=== PATIENT | female | born 1990 | race Caucasian/White ===

== ENCOUNTER → 2016-09-22 | Outpatient (CLI) | payer BC ==
[2016-09-25 08:07] LABS: Mis test requested (Blood) Heat Shock Protein
[2016-09-30 08:10] LABS: Mis test requested (Blood) HLA B-27
== END | disposition home or self-care (01) ==
LOC: LABWHC1 13:33
PROVIDERS: ATTEND Nurse Practitioner Family
DX: R51 Headache (principal); M54.2 Cervicalgia; H92.01 Otalgia, right ear; H90.5 Unspecified sensorineural hearing loss; H93.13 Tinnitus, bilateral
CPT/HCPCS: 36415; 81400; 83516; 85652; 86038; 86431; 86618

== ENCOUNTER → 2022-10-01 | Outpatient (CLI) | payer MEDICAID ==
--- NOTE | 2022-10-02 09:17 | MR ---
EXAMINATION TYPE: MR thoracic spine wo con DATE OF EXAM: 10/01/2022 4:56 PM COMPARISON: No priors. 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 Lower back pain with left leg p ain TECHNIQUE: Multi planar, multi sequence imaging was performed utilizing: T1-weighted, short-tau inver martha recovery and T2-weighted of the thoracic spine. The patient was not given Gadolinium. IV Contrast: None FINDINGS: There is moderate curvature with the spinal cord position anteriorly along the posterior aspect of th e vertebral bodies. There is a syrinx this essentially extends throughout the entire visualized spina l cord centrally measuring up to 2 mm at the level of T6. Scattered disc desiccation throughout the vertebral bodies. Scattered disc bulging is present. Scatte red degeneration changes throughout the spine. There is high-grade T1/high T2 signal T12 vertebral moses dy probable hemangioma. No evidence for significant spinal cord or neural foraminal stenosis. Posterior osteophyte at the level of the disc which closely approximates/minimally impresses on the s klesea cord anteriorly at T4-T5, T5-T6, T8-T9 and T9-T10. Cord signal is maintained. IMPRESSION: 1. No evidence of significant spinal canal or neural foraminal stenosis. 2. 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 3. Posterior osteophyte at the level of the disc which closely approximates/minimally impresses on t he spinal cord anteriorly at T4-T5, T5-T6, T8-T9 and T9-T10. No abnormal cord signal.
== END | disposition home or self-care (01) ==
LOC: RADMRIMAIN 16:08
PROVIDERS: ATTEND Nurse Practitioner Family
DX: M47.26 Other spondylosis with radiculopathy, lumbar region (principal); G95.0 Syringomyelia and syringobulbia; M79.605 Pain in left leg
CPT/HCPCS: 72146

== ENCOUNTER 2023-04-23 12:02 | Day surgery (SDC) | payer MEDICAID ==
--- NOTE | 2023-04-23 07:35 | P.HPOR ---
History of Present Illness H&P Date: 04/23/23 .T:Title: [facility] Date of :[birth year] R14 Allergies: Age: 33 year Height: 5'7" Weight: 155 lbs BP:109/69 BMI: 24.28 kg/m2 Occupation: Receiving Lead VAS: 5 CHIEF COMPLAINT: lumbar pain DOI: Chronic DOS: n/a Duration of current treatment regiment:5 months HISTORY : Xrays No new xrays taken in office Trauma or injury Yes, fall from steps on ice Work-Related No Pain description Aching & sharp. Location Posterior Patient notes that their pain radiates to left lower extremity Activity Modification No Hand Dominance Right TREATMENTS COMPLETED: 6 weeks of PT completed? Month and Year of last PT date? No, Patient has completed 2 sessions and is currently attending Physician directed home exercise completed? Yes, in the past 3 months patient has trialed the physician directed home exercise program for Lumbar spine 2x/wk for 20min without relief of their symptoms. Medications Yes List: Ibuprofen Alternative interventions Chiropractic:Yes, with some relief Massage therapy:No R.I.C.E:Yes Brace: No Injections No RFA: No SUBJECTIVE: Ms. Bahena returns today for a re-check and treatment of her low back pain. Since last visit patient states she never got the previously ordered injections. Patient reports lumbar pain that radiates down the left leg only. She state her leg and back ache all the time. She notes difficulty bending over. The patient states that her left lower extremity pain is associated with numbness and tingling. The patient notes intermittent sharp, shooting pains throughout the low back as well, though the ache-like pain occurs on a more constant basis. The patient states that her current symptoms are exacerbated by prolonged sitting or standing, when getting up from a chair, or when walking up the stairs. The patient is having severe sleep disturbances at this time due to her ongoing pain and associated symptoms. The patient notes continued urinary urgency. She has trialed conservative treatment measures in the form of physical therapy, at home stretches/exercises, at home heat/ice therapies, activity modification, and medication management, all with very mild relief of her symptoms. The patient is currently taking Ibuprofen for pain relief. Otherwise the patient denies any f/c/sob/cp, no bowel retention/incontinence, no perineal numbness/tingling, and ambulates independently today. HPI: Ms. Bahena returns to the office on 11/13/22 for a re-check of her low back pain and to review recent EMG and MRI results. The patient reports experiencing a continued ache-like pain throughout the low back that radiates down into the left lower extremity. The patient states that her left lower extremity pain is associated with numbness and tingling. The patient notes intermittent sharp, shooting pains throughout the low back as well, though the ache-like pain occurs on a more constant basis. The patient notes that her symptoms have remained relatively stable since she was last evaluated in office on 09/23/2022. The patient states that her current symptoms are exacerbated by prolonged sitting or standing, when getting up from a chair, or when walking up the stairs. The patient is having moderate to severe sleep disturbances at this time due to her ongoing pain and associated symptoms. The patient notes continued urinary urgency. She has trialed conservative treatment measures in the form of physical therapy, at home stretches/exercises, at home heat/ice therapies, activity modification, and medication management, all with very mild relief of her symptoms. The patient's EMG of the bilateral lower extremities and MRI of the thoracic spine were both reviewed with the patient in detail today. The patient is currently taking Ibuprofen for pain relief. Otherwise the patient denies any f/c/sob/cp, no bowel retention/incontinence, no perineal numbness/tingling, and ambulates independently today. Ms. Bahena returns to the office on 09/23/2022 for recheck on her low back pain and MRI results. Patient continues to report an aching, stabbing, shooting lumbar pain that radiates into the left lower extremity, associated with numbness and tingling. Since last office visit patient has attempted to perform physical therapy, unable to do so due to exacerbation of symptoms. Patient also continues to report urgency to urinate and has had incontinence at times. MRI results have been reviewed and discussed. For her symptoms, patient continues to take gabapentin and Motrin. Otherwise the patient denies any f/c/sob/cp, no bowel retention/incontinence, no perineal numbness/tingling, and ambulates independently. Ms. Bahena was last seen on 09/07/2022 regarding an evaluation of their low back pain. Patient reports flare ups of an aching, stabbing, and shooting lumbar pain ongoing for approx 8 years and is continuing to progress with no known injury or trauma to indicate an exact onset of their symptoms. In addition to their lumbar pain, they do report that it radiates into the left lower extremity, associated with numbness and tingling. Overall the patient has seen a progressive increase in symptoms since their onset. She reports the urgency to urinate and has had incontinence at times. Patient also reports during these flare up she has edema to the left lower extremity to the point that she is unable to wear her shoe. Ms. Bahena symptoms are exacerbated with any increased activity, due to this they notes that it is increasingly difficult for Ms. Bahena to complete many of their daily tasks. Patient is having moderate sleep disturbances as well due to their ongoing pain and associated symptoms. Regarding treatments, the patient has previously trialed the above listed modalities. Patient denies trialing any other modalities at this time. For their symptoms, the patient has been taking Motrin. Otherwise the patient denies any f/c/sob/cp, no bowel retention/incontinence, no perineal numbness/tingling, and ambulates independently. The patients' past social, medical, family, surgical history, as well as review of systems, have been reviewed. Please refer to the Neurosurgery History and Physical form that has been scanned in to our electronic medical record system. 14 points review of systems completed and as stated in HPI, all other systems reviewed are negative. Social History: Reviewed, see appropriate section of the chart for details. P3 Family History: Reviewed, see appropriate section of the chart for details. P2 Past Medical History: Reviewed, see appropriate section of the chart for details. [id number] Medications: Rx: IBUPROFEN 200mg ORAL Tablet, Ref: 0 Rx: gabapentin 300 mg capsule Ref: 0 PHYSICAL EXAMINATION: General:Awake, alert, appropriate for age, in no acute distress. HEENT:No unusual neck masses around region of lateral neck triangle, thyroid, supraclavicular groove Heart:Regular rate and rhythm, normal S1, S2 and no murmur/gallop. Lungs:Clear to auscultation bilaterally with no use of accessory muscles. Extremities:Skin warm and dry without acute lesions, coloration, temperature, skin intact, no tenderness or erythema Integument: Hairy patches:ABSENT Dorsal skin dimples:ABSENT Cafe au lait spots:ABSENT Surgical incisions:n/a Palpation: Please see Pain drawing on Intake sheet for further detail. Midline spinal tenderness:No E6 Cervical Tenderness: No E6 Paralumbar tenderness:No E6 Parathoracic tenderness:No E6 Buttocks tenderness:Left Sacroiliac Tenderness:Yes Laterality: Left POSTURAL and MUSCULO-SKELETAL EVALUATION: Coronal Balance: NEUTRAL Recumbent testing: Patient isable to lay flat on back Sagittal Balance: NEUTRAL Shoulder Profile: LEVEL Pelvic Girdle: LEVEL Neck ROM: UNRESTRICTED Lumbar ROM: RESTRICTED Shoulder ROM: Symmetrical Hip ROM: Symmetrical Knee ROM: Symmetrical Hands: Normal appearance, Symmetrical Feet: Normal appearance, Symmetrical VASCULAR STATUS : LEFTRIGHT Wrist Pulses INTACT INTACT Pedal Pulses (Dors. pedis & post.tibialis) INTACT INTACT Color NORMAL NORMAL Edema Absent Absent NEUROLOGIC EXAMINATION: Mental Status:Awake and alert, fully oriented, with normal attention, concentration and memory, and fluent, appropriate speech. Cranial Nerves: I: Olfactory not tested. II: Visual acuity normal, no visual field deficit noted with confrontation. III,IV: Normal pupillary reflexes & intact extraocular movements without nystagmus. V,: Intact symmetrical facial sensation. VII: Intact symmetrical facial motor movement VIII: Hearing intact. IX,X: Intact gag, swallow, & normal voice. XI: Sternocleidomastoid, trapezius function intact. XII: Tongue midline with normal movements. L'hermitte's Sign:Negative / absent Spurling'Sign: Absent bilaterally. Cubital percussion test:Absent bilaterally. Vela-Tinel sign - Carpal region:Absent bilaterally. Straight Leg Raising:Absent bilaterally. Crossed straight leg raise: negative O8 MOTOR EXAM (0-5/5, N/T Muscle appearance: Symmetrical, without signs of atrophy or dystrophy UPPER EXTREMITY RIGHT LEFT Shoulder Abduction 5/5 5/5 Biceps 5/5 5/5 Triceps 5/5 5/5 Wrist Extension 5/5 5/5 Hand Intrinsic 5/5 5/5 Abstract Clerk 5/5 5/5 Hand and finger dexterity intact bilaterally?yes Disdiadochokinesis examination negative bilaterally? yes LOWER EXTREMITY RIGHT LEFT Hip Flexion 5/5 4-/5 Knee Extension 5/5 4-/5 Knee Flexion 5/5 4-/5 Dorsiflexion 5/5 4-/5 Plantarflexion 5/5 4-/5 EHL 5/5 4-/5 FHL 5/5 4-/5 Toe heel walk / heel-toe walk intact while maintaining satisfactory balance? yes Squatting/straightening w/o assistance to a min of 60 degree knee flexion? No Single leg stance: intact Trendelenburg sign negative bilaterally REFLEXES(0-4/2, NT)Upper ExtremityLower Extremity Right 2 2 Left 2 2 Pathological Reflexes RIGHT LEFT Vela's Absent Absent Clonus Absent Absent Babinski Absent Absent Sensory system (0-4, N/T) Test type RU GREGORY RL LL Joint-Position 2 2 2 2 Vibration 2 2 2 2 Pain & LT sense 2 2 2 2 Dermatomal Deficit: None None None None Gait and Functional Evaluation: Ambulatory aids:Independent Romberg's test:Intact bilaterally Steady Gait RADIOGRAPHIC STUDIES: XRay Lumbar Multiview (AP, Lateral, Flexion, Extension) with AP pelvis; 5 views taken at [facility] on 09/07/22: Multilevel degenerative changes with preserved alignment. Vertebral body heights are preserved. Multilevel diminished disc height. No acute osseous abnormalities. MRI scancompleted at [facility] from 09/18/22 of LumbarSpine: IMPRESSION: 1. No definitive evidence of disc herniation or significant spinal canal stenosis. 2. Minimal disc degeneration with associated osteoarthritic changes. IMPRESSION: It was my pleasure to have seen and examined Saba. I reviewed the patient's clinical syndrome, physical findings, and imaging studies during the appointment today. It is my impression that the patient has a diagnosis of. 1. Left SI joint pain I outlined the natural course history without intervention and various interventional options. PLAN: Based on my findings I suggest the following course of action: -Advised patient to continue with supplements, health maintenance, and home exercise programs. Patient expressed understanding and will continue with these modalities. - I discussed treatment options with the patient, including operative and non- operative options, and they have elected to proceed with the following surgical procedure: Left SI joint injections The indications, risks, benefits, and alternatives to surgery were discussed with the patient at length. Specifically (but not limited to) the risks of infection, stiffness, recurrence of symptoms, need for revision surgery, local numbness, neurovascular injury, and blood clots were discussed. The patient's questions were answered. The decision to proceed was made. Consent will be obtained for the procedure. -Ambulate daily -Take medications as directed -Ice and rest for pain and swelling control. Spine Surgery Risk Review Ms. Bahena is presenting for evaluation of low back and left leg pain. It was my pleasure to have seen and examined Ms. Bahena. In our visit today we have had a chance to go over subjective complaints, physical examination findings and treatments including the natural course history without intervention and various interventional options. The patients imaging demonstrates: XRay Lumbar Multiview (AP, Lateral, Flexion, Extension) with AP pelvis; 5 views taken at [facility] on 09/07/22: Multilevel degenerative changes with preserved alignment. Vertebral body heights are preserved. Multilevel diminished disc height. No acute osseous abnormalities. MRI scancompleted at [facility] from 09/18/22 of LumbarS [facility]: IMPRESSION: 1. No definitive evidence of disc herniation or significant spinal canal stenosis. 2. Minimal disc degeneration with associated osteoarthritic changes. On physical exam, Ms. Bahena demonstrates: Patient reports lumbar pain that radiates down the left leg only. She state her leg and back ache all the time. She notes difficulty bending over. The patient states that her left lower extremity pain is associated with numbness and tingling. The patient notes intermittent sharp, shooting pains throughout the low back as well, though the ache-like pain occurs on a more constant basis. The patient states that her current symptoms are exacerbated by prolonged sitting or standing, when getting up from a chair, or when walking up the stairs. The patient is having severe sleep disturbances at this time due to her ongoing pain and associated symptoms. The patient notes continued urinary urgency. I have explained to the patient that as their condition progresses it will cause further neurological deficits and eventual paralysis. Based on the patients imaging, physical exam, and the rapid progression and disabling nature of their symptoms, at this time I recommend surgery in the form of a: Left SI joint injections. I discussed the risk and benefits of this procedure at length with Ms. Bahena. The patient agreed to considered pursuing the procedure abovementioned. Prior to surgery, she should follow up with her PCP (Cardio, ID, IM etc) for clearance. Questions were invited and answered, and the patient wishes to proceed as outlined below. Currently, I am recommendin.Left SI joint injections 2.Follow up with PCP for surgical clearance 3.Review of surgical risks and benefits as well as an educational packet on the proposed surgical procedure. Risks: All surgical procedures come with inherent risks, including those related to positioning, anesthesia, intraoperative findings, and postoperative complications. It is important to understand that surgery does not come with any guarantee of a successful outcome as complications and adverse events are always possible. The patient was given a handout in office today discussing the surgical procedure and risks associated with the intervention, both of which were discussed with the patient. These risks include but are not limited to the following: * Experiencing same, different or even worse symptoms in back, neck, arms, or legs compared to before surgery. Requiring further surgery or other forms of treatment presently or at some time in the future at same or other levels of the intended spine surgery. On an extreme but fortunately relatively rare basis severe complication such as blindness, stroke, heart attack, temporary and/or permanent nerve injury, paralysis, coma, or may occur, sometimes without known explanation. Surgical complications may include but are not limited to risk of infection, fluid accumulation in the surgical dissection site, including a seroma or hematoma, that requires additional surgery, wound drainage, bleeding, new numbness or weakness, vision changes/loss, spinal fluid leakage, non-healing and/or infected incision, headaches, difficulty or inability to swallow, hoarseness, hemopneumothorax, pneumothorax, impotence, retrograde ejaculation, vaginal dryness; injury to nerves, spinal cord, blood vessels, lymphatics or other vital organs (i.e., bowel injury, injury to the great vessels); heterotopic bone formation; complications related to the hardware such as screws, rods, cages including misplaced hardware, device failure, instrumentation at the wrong spine level, hardware fracture/breakage, or hardware loosening; vertebral failure of the spinal column above or below the newly placed hardware; retained surgical instrumentations or devices and the need for further surgery. * Medical risks of the planned spine surgery include but are not limited to generalized Infections to the whole body or local areas outside of the surgical site (sepsis), heart attack, bleeding, anaphylaxis, meningitis, seizure, epilepsy, hearing loss, burn mcmillan, laceration of the head or other areas of the body, bruising, hypersensitivity of the skin, bladder over distension; allergic reaction; shoulder injury related to positioning; fat, blood and air clots to other areas of the body like heart, lungs, brain; failure of internal organs such as lungs, kidneys, liver and excessive bleeding. If blood transfusions are necessary, note that transfusions may cause intolerance reactions such as anaphylaxis or other complex reactions. Despite best efforts, the results of spine surgery might not heal in terms of bone, soft tissues such as skin, fascia, ligaments, and joints. Additionally, in order to achieve best possible results, spine surgery may be carried out beyond the initially planned levels and involve decompression, fusion including insertion of hardware at levels other than the original intended area of surgical interest change some portions of the procedure in order to ensure the best possible outcomes. With spine surgery and spinal fusion, there are different off label uses of instrumentation (devices, implants and hardware) as well as biological substances (bone morphogenic proteins, demineralized bone matrix) as well as using extra bone from allograft sources (i.e. cadaver bone) or autograft (iliac crest bone, ribs, or the spine itself). The patient has been given information about these practices and their inherent risks and benefits. [facility] is an educational center that serves as a training facility for neurosurgical and orthopedic [employer] HELPER and Nursing students. Physician assistants are medically trained surgical providers who function in the outpatient, inpatient, and operating room setting under the direct supervision of the attending surgeon. [facility] has multiple operating rooms with single and overlapping rooms running daily. They currently function under the required guidelines as produced by the [facility] Finance Committee with regards to the overlapping rooms and will continue to comply with changes to this policy as they occur. The requirements include and are complied with as follows: (1) the critical portions of the overlapping rooms will not occur at the same time, (2) the attending physician will be physically present during the critical portions of the procedure and immediately available during the entire case, and (3) a back-up attending is designated should the primary attending not be immediately available. The patient has had a chance to review all the listed information, has been given print outs detailing this information, and has had all his/her questions answered to their satisfaction. It was my pleasure to have seen and examined Ms. Bahena. In our visit today we have had a chance to go over my understanding of our patient's current condition, the natural course history without intervention and various interventional options. Questions were invited and answered, and the patient wishes to proceed as outlined above. I have seen and examined the patient for 25 minutes and we have spent more than 50% of the time in repeat and detailed counseling about the patient's condition, its natural course history with out and as much as can be predicted with surgery and re-review of various surgical treatment options. In conclusion, Ms. Bahena requested we proceed with the above suggested surgery and are willing to accept risks and limitations of the suggested surgery as nature of the disease process and our best attempts at treatment for the condition. Thank you again for allowing us to be part of your patient's care. Please don't hesitate to contact me if you have any further questions. Signed and authenticated by: [employer] P:\\\\ppart\\\\[id number]\\\\[id number] \\d Jonathan Jaeger DO [facility] Complex and Minimally Invasive Spine Surgery [address] [place] [id number] Follow-up: Post procedure Patient Education: (Informational booklet, instructions, etc) given at today's appointment: Yes .ED:Patient Education: Y Medications Reviewed: YES In our visit today Ms. Bahena and I have had a chance to go over my understanding of the patient's current condition, the natural course history without intervention and various interventional options. Questions were invited and answered, and the patient wishes to proceed as outlined above. I will be sure to keep you updated afterMs. Bahena returns here for further follow-up. Thank you again for your referral. Please do not hesitate to contact me if you have any further questions. Signed and authenticated by: Jonathan Bassett [facility] Minimally Invasive Spine Surgery [address] [place] [id number] This message is confidential, intended only for the named recipient(s) and may contain information that is privileged or exempt from disclosure under applicable law. If you are not the intended recipient(s), you are notified that the dissemination, distribution or copying of this information is strictly prohibited. If you received this message in error, please notify the sender then delete this message. Patient verbalizes understanding of the information discussed. The above note was initiated by Tera Baxter, physician recording psychiatric assistant for Dr. Jonathan Jaeger. This note has been reviewed by Dr. Jaeger, who has made his personal changes and impressions for this document. CC: Jamie Hanson M.D. # SIGNED BY Jonathan Jaeger (GOO)03/03/2023 01:05PM Past Medical History Past Medical History: Cancer, GI Bleed, Thyroid Disorder Additional Past Medical History / Comment(s): Back pain, basal cell skin cancer with removal, STATES PAST "INTERMITTENT BLEEDING WITH STOOLS" History of Any Multi-Drug Resistant Organisms: None Reported Additional Past Surgical History / Comment(s): WISDOM TEETH, L facial cancer removed Past Anesthesia/Blood Transfusion Reactions: No Reported Reaction Smoking Status: Never smoker - Past Family History Mother Family Medical History: Thyroid Disorder Medications and Allergies Home Medications Medication Instructions Recorded Confirmed Type Ibuprofen [Motrin Ib] 200 mg PO Q8H PRN 04/20/23 04/20/23 History Multivit with Calcium,Iron,Min 1 tab PO QAM 04/20/23 04/20/23 History [Women's Multivitamin] Allergies Allergy/AdvReac Type Severity Reaction Status Date / Time corn Allergy Nausea Verified 04/20/23 13:11 egg Allergy Nausea Verified 04/20/23 13:11 peanut [Peanut Butter] Allergy Nausea Verified 04/20/23 13:11 Penicillins Allergy Anaphylaxis Verified 04/20/23 13:07 sesame seed Allergy Nausea Verified 04/20/23 13:11 soy Allergy Nausea Verified 04/20/23 13:11 sulfamethoxazole Allergy Rash/Hives Verified 04/20/23 13:07 [From Bactrim] trimethoprim [From Bactrim] Allergy Rash/Hives Verified 04/20/23 13:07 walnut Allergy Nausea Verified 04/20/23 13:11 wheat Allergy Nausea Verified 04/20/23 13:11 levofloxacin [From Levaquin] AdvReac Mild Swelling Verified 04/20/23 13:07 aspirin AdvReac "LIGHTHEADEDNESS, Verified 04/20/23 13:07 DIZZINESS, AND SHAKEY FEELING" naproxen AdvReac "LIGHTHEADEDNESS, Verified 04/20/23 13:07 DIZZINESS, AND SHAKEY FEELING" Physical Examination Osteopathic Statement: *. No significant issues noted on an osteopathic structural exam other than those noted in the History and Physical/Consult.
[~2023-04-23 12:02] MED LIST: Pre Op ABX Message 1 EACH MISC MISCELLANE ONE
[2023-04-23 12:40] VITALS: TEMP 97
--- NOTE | 2023-04-23 13:56 | P.OP ---
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, sacral and sacrococcygeal region M53.3 Sacrococcygeal disorders, not elsewhere classified Procedure(s) Performed: LEFT 91825 INJECTION PROCEDURE FOR SACROILIAC JOINT, ANESTHETIC/STEROID, WITH IMAGE GUIDANCE (FLUOROSCOPY OR CT) INCLUDING ARTHROGRAPHY WHEN PERFORMED 30099 INJECTION(S), ANESTHETIC AGENT(S) AND/OR STEROID; NERVES INNERVATING THE SACROILIAC JOINT, WITH IMAGE GUIDANCE (IE, FLUOROSCOPY OR COMPUTED TOMOGRAPHY) 47302 FLUOROSCOPIC GUIDANCE FOR NEEDLE PLACEMENT (EG, BIOPSY, ASPIRATION, INJECTION, LOCALIZATION DEVICE) (LIST SEPARATELY IN ADDITION TO CODE FOR PRIMARY PROCEDURE) G0260 INJECTION PROCEDURE FOR SACROILIAC JOINT; PROVISION OF ANESTHETIC, STEROID AND/OR OTHER THERAPEUTIC AGENT, WITH OR WITHOUT ARTHROGRAPHY Implants: NONE Anesthesia: local Surgeon: Jonathan Jaeger Estimated Blood Loss (ml): 2 IV fluids (ml): 0 Urine output (ml): 0 Pathology: none sent Condition: stable Disposition: PACU Indications for Procedure: Ms. Bahena is presenting for evaluation of low back and left leg pain. It was my pleasure to have seen and examined Ms. Bahena. In our visit today we have had a chance to go over subjective complaints, physical examination findings and treatments including the natural course history without intervention and various interventional options. The patients imaging demonstrates: XRay Lumbar Multiview (AP, Lateral, Flexion, Extension) with AP pelvis; 5 views taken at [facility] on 09/07/22: Multilevel degenerative changes with preserved alignment. Vertebral body heights are preserved. Multilevel diminished disc height. No acute osseous abnormalities. [facility] from 09/18/22 of LumbarSpine: IMPRESSION: 1. No definitive evidence of disc herniation or significant spinal canal stenosis. 2. Minimal disc degeneration with associated osteoarthritic changes. On physical exam, Ms. Bahena demonstrates: Patient reports lumbar pain that radiates down the left leg only. She state her leg and back ache all the time. She notes difficulty bending over. The patient states that her left lower extremity pain is associated with numbness and tingling. The patient notes intermittent sharp, shooting pains throughout the low back as well, though the ache-like pain occurs on a more constant basis. The patient states that her current symptoms are exacerbated by prolonged sitting or standing, when getting up from a chair, or when walking up the stairs. The patient is having severe sleep disturbances at this time due to her ongoing pain and associated symptoms. The patient notes continued urinary urgency. I have explained to the patient that as their condition progresses it will cause further neurological deficits and eventual paralysis. Based on the patients imaging, physical exam, and the rapid progression and disabling nature of their symptoms, at this time I recommend surgery in the form of a: Left SI joint injections. I discussed the risk and benefits of this procedure at length with Ms. Bahena. The patient agreed to considered pursuing the procedure abovementioned. Prior to surgery, she should follow up with her PCP (Cardio, ID, IM etc) for clearance. Questions were invited and answered, and the patient wishes to proceed as outlined below. Currently, I am recommendin.Left SI joint injections Description of Procedure: The patient was seen and examined in the preoperative area. All preoperative protocols were followed. Informed consent was obtained, risks and benefits of the procedure were discussed at length. Risks including bleeding infection damage to the surrounding tissue and risk of reoperation were discussed with the patient. Risk of anesthesia up to and including was discussed with the patient. These are outlined in the risk review. They were willing to accept these risks and all of the risks of surgery. The patient was seen and evaluated by the anesthesia team who deemed them fit for surgery. The site was marked, the patient was willing to proceed with the procedure. The patient was transferred to the operative suite by the Department of anesthesia. They were then drifted off to sleep by the department anesthesia and sedation with local was performed. The patient tolerated this well. Once confirmation of lines and ventilation the patient was transferred to a prone Marco table very carefully. All bony prominences including wrists, elbows, axilla, chest, hips, and thighs, and feet were padded very well. Special attention was paid to the genitalia and these were padded accordingly. SCDs were placed on bilateral lower extremities and were connected. Arms were well padded and placed on arm boards up and out in the 90/90 position. Once in position, again we confirmed good ventilation capabilities and that lines were running appropriately. The patient's lumbopelvic spine was then exposed. 1010s were pl aced outlining the incision site. Standard alcohol was used to clean the incision site and allowed to dry. C-arm was used to biomark the patient and confirm level for incision which was marked with a skin marker. Operative briefing was performed with all teams and everyone in agreement to proceed. The patient was then prepped and draped in a normal sterile fashion. Timeout was then performed and all parties were in agreement with the procedure to be performed. Biplanar fluoroscopy was used to identify the bilateral SI joints which were then accessed with a 18-gauge needle after anesthetic was placed into the subcutaneous tissue in the form of 1% with epinephrine of lidocaine along with a mixture of cortical percent Marcaine without epinephrine. Once there is good anesthesia and the SI joints were accessed Isovue was used to confirm within the joint space. Once this was confirmed 40 of Kenalog along with a mixture of lidocaine and Marcaine were injected into the SI joint. Patient remained stable the entire time without any radicular symptoms during the injection phase. The needles were withdrawn and the area cleaned and Band-Aids placed. Pt was then transferred to the Recovery room in stable condition having tolerated the procedure well without complications.
[2023-04-23] MEDS ORDERED: methylPREDNISolone ACETATE 40 MG/ML 1 ML VIAL INTRAARTIC ONE (14:10)
[2023-04-23] MEDS ORDERED: LIDOCAINE 2%-EPI 1:100,000 20 ML VIAL SQ ONE (14:10)
[2023-04-23] MEDS ORDERED: BUPIVACAINE (PF) 0.25% 30 ML VIAL SQ ONE (14:10)
[2023-04-23 14:39] VITALS: BP 134/82; PULSE 84; RESP 16
--- NOTE | 2023-04-23 15:18 | FL ---
EXAMINATION TYPE: FL guidance operating room DATE OF EXAM: 04/23/2023 Comparison: None Clinical History: 33-year-old female with lumbar spine injection. Findings: FT: 1.3 SECONDS DAP: 0.0867 Gycm2 Total images: 3 Impression: Procedural fluoroscopy as above.
== END 2023-04-23 14:41 | disposition home or self-care (01) ==
LOC: OR 12:02
PROVIDERS: ATTEND Orthopaedic Surgery
DX: M46.1 Sacroiliitis, not elsewhere classified (principal); M47.818 Spondylosis without myelopathy or radiculopathy, sacral and sacrococcygeal region; M53.3 Sacrococcygeal disorders, not elsewhere classified; Z85.828 Personal history of other malignant neoplasm of skin; Z88.0 Allergy status to penicillin; Z88.1 Allergy status to other antibiotic agents; Z88.2 Allergy status to sulfonamides; Z88.6 Allergy status to analgesic agent; W10.9XXA Fall (on) (from) unspecified stairs and steps, initial encounter
CPT/HCPCS: 27096; J1030; J0665; 81025

== ENCOUNTER → 2023-05-13 | Outpatient (CLI) | payer MEDICAID ==
--- NOTE | 2023-05-14 09:34 | MR ---
EXAMINATION TYPE: MR lumbar spine wo con DATE OF EXAM: 05/13/2023 COMPARISON: 09/18/2022 HISTORY: Low back pain into left side, Tingling in left leg to foot, CONTRAST: 0 mL intravenous Gadavist. TECHNIQUE: Multiplanar, multisequence images of the lumbar spine were acquired. FINDINGS: Cord terminates at the T12-L1 level. Disc heights are preserved. Disc hydration levels sorin ear normal. No spinal canal stenosis or neural foraminal stenosis is present. L5-S1: No significant disc bulge or disc herniation. No spinal canal stenosis. No foraminal stenosi s. L4-L5: No significant disc bulge or disc herniation. No spinal canal stenosis. No foraminal stenosi s. L3-L4: No significant disc bulge or disc herniation. No spinal canal stenosis. No foraminal stenosi s. L2-L3: No significant disc bulge or disc herniation. No spinal canal stenosis. No foraminal stenosi s. L1-L2: No significant disc bulge or disc herniation. No spinal canal stenosis. No foraminal stenosi s. T12-L1: No significant disc bulge or disc herniation. No spinal canal stenosis. No foraminal stenos is. IMPRESSION: 1. No acute abnormality to account for left neurologic symptoms
== END | disposition home or self-care (01) ==
LOC: RADMRIMAIN 15:08
PROVIDERS: ATTEND Orthopaedic Surgery
DX: M54.50 Low back pain, unspecified (principal); R20.2 Paresthesia of skin
CPT/HCPCS: 72148

== ENCOUNTER 2023-08-17 06:27 | Day surgery (SDC) | payer MEDICAID ==
[2023-08-17] MEDS: LACTATED RINGERS 1,000 ML IV SCH (06:55)
[2023-08-17 07:24] VITALS: TEMP 97.2
[2023-08-17] MEDS ORDERED: PROPOFOL 10 MG/ML 20 ML VIAL IV ONE (07:25)
--- NOTE | 2023-08-17 07:48 | P.PCN ---
Date of Procedure: 08/17/23 Procedure(s) Performed: Brief history: Patient is a pleasant 33-year-old white female scheduled for an elective upper endoscopy as well as colonoscopy as a part of evaluation of Abdominal pain and diarrhea for the last 2 years duration Procedure performed: EsophagogastroduodenoscopyWith biopsy Colonoscopy With biopsy Preoperative diagnosis: Chronic abdominal pain Chronic diarrhea Anesthesia: [facility] [place] Procedure: After informed consent was obtained from the patient was brought into the endoscopy unit and IV sedation was administered by anesthesia under continuous monitoring. Initially upper endoscopy was done. The Olympus GF 160 video endoscope was inserted inserted into the mouth and esophagus intubated without any difficulty and was gradually advanced into the stomach and duodenum and carefully examined. The bulb and second part of the duodenum appeared normal. Biopsies were done from the duodenum to evaluate for celiac disease. The scope was then withdrawn into the stomach adequately insufflated with air and upon careful examination the antrum And mild antral gastritis and biopsies were done from this area. Mucosa of the body, cardia and fundus appeared normal. The scope was then withdrawn into the esophagus. The GE junction was located at 40 cm to the incisors. It appeared regular with no erythema erosions or ulcerations. Rest of the esophagus appeared normal. Biopsies were done from the distal esophagus to evaluate for eosinophilic esophagitis. Patient tolerated the procedure well. At this time the patient continued to remain sedation. Initial digital rectal examination was normal. Olympus CF 160 video colonoscope was then inserted into the rectum and gradually advanced to the cecum without any difficulty. Careful examination was performed as the scope was gradually being withdrawn. The prep was excellent. Terminal ileum was intubated and 20 cm visualized and appeared normal. The cecum, ascending colon, transverse colon, descending colon, sigmoid colon and rectum appeared normal. Random biopsies were done from ascending and descending colon to rule out microscopic/collagenous colitis. Retroflexion was performed in the rectum and no lesions were noted. Patient tolerated the procedure well. Impression: 1.Upper endoscopy revealed mild antral gastritis but no evidence of esophagitis or peptic ulcer disease 2.Colonoscopy was within normal limits With no evidence of colorectal neoplasia Recommendations: Findings of this examination were discussed with the patient as well as Her family. She was advised to follow with the biopsy results.
[2023-08-17 08:42] VITALS: BP 103/64; PULSE 88; RESP 16
== END 2023-08-17 08:26 | disposition home or self-care (01) ==
LOC: ORWHC2ENDO 06:27
PROVIDERS: ATTEND Internal Medicine Gastroenterology
DX: K29.50 Unspecified chronic gastritis without bleeding (principal); K29.80 Duodenitis without bleeding; K52.9 Noninfective gastroenteritis and colitis, unspecified; F41.9 Anxiety disorder, unspecified; Z88.0 Allergy status to penicillin; Z88.2 Allergy status to sulfonamides; Z88.3 Allergy status to other anti-infective agents; Z88.6 Allergy status to analgesic agent; Z88.1 Allergy status to other antibiotic agents; Z91.012 Allergy to eggs; Z91.010 Allergy to peanuts; Z91.018 Allergy to other foods
CPT/HCPCS: 81025; 88305; 45380; 43239; J2704

== ENCOUNTER → 2023-10-07 | Outpatient (CLI) | payer MEDICAID ==
[2023-10-07 09:15] VITALS: BP 140/89; PULSE 107; RESP 16; TEMP 98.4
--- NOTE | 2023-10-07 14:47 | P.PAINPG ---
PQRS Measure Charge Sheet Comment: HISTORY OF PRESENT ILLNESS: A 33 yr old female as a referral from Dr Jaeger presents today w severe and chronic LBP > 3 mo secondary to DDD, spondylosis and facet arthropathy without myelopathy for evaluation. Pt states pain level is provoked at 10 /10 in intensity, constant, localized in the L lower lumbar spine, predominantly axial, achy in character w occasional shooting pain towards the LLE. Pain is provoked by over activity. Pain is alleviated by PT x 4 wks which ended in Nov 2022, chiropractic treatments semi weeklyx 8 wks which ended in Dec 2022, physician guided home exercises/ stretches every morning since Dec 2022. heat, ice, medications (Ibu), topical BioFreeze, repositioning and rest . Oswestry axial pain score at 24. PMH: OA PSH: [place] Teeth Extraction SH: Never smoker, Occasional ETOH use, No illicit drug use FH: Non contributory All: See list Meds: See list REVIEW OF ORGAN SYSTEMS: CONSTITUTIONAL: No fevers or chills. No recent weight loss. NEUROLOGICAL: + numbness and tingling along the distal extremities. No seizure disorders or headaches. MUSCULOSKELETAL: + pain PSYCHIATRIC: Denies current depression or suicidal thoughts. Physical Examinations : Constitutional : Cooperative , not in acute distress . Neurologic : Cranial nerve II to XII intact. No focal neurological deficits. Psychiatric : alert & oriented x 3. Matching mood & appropriate affect. Judgment & insight intact. Musculoskeletal : Cervical Spine Motor strength in the deltoid and biceps: Normal right side. Normal Left side Motor strength biceps and the wrist extensors: Normal right side . Normal left side Motor strength in the triceps muscle: Normal right side. Normal left side Deep tendon reflexes: Normal at the biceps. Normal at Brachioradialis. Normal at triceps Vertebral body tenderness to deep palpation over Cervical facet loading test: positive bilaterally Spurling test: positive bilaterally Neck distraction test: positive bilaterally Kori sign: positive bilaterally Lumbar spine Motor strength lower extremities ,thigh and legs 5/5 Right side , 5/5 Left side Deep tendon reflexes : Normal Knee Jerk. Normal Ankle Jerk Vertebral body tenderness over Parmar Test positive Lumbar facet Loading Test: positive Right < positive Left L5-S1 Range of motion of the lumbar spine Flexion 30 degrees, extension 10 degrees Straight Leg Raise test: Left/ Right positive at degrees Carlton test: positive right / positive left. Severe tenderness over the Sacroiliac joint on the Right / Left sides Gaenslen test: positive bilaterally Seated flexion test: positive bilaterally. Sacral spine : Severe tenderness over the Sacroiliac joint: right side / left side Range of motion: Flexion of the lumbar spine <60 degrees Range of motion: Extension of the lumbar spine <20 degrees Gaenslen's Test positive Carlton test: positive right side / left side Thigh Thrust Test Sacral Thrust Test Imaging: MRI noncontrast of the lumbar spine from 05/13/2023 reviewed Assessment/ Plan : Lumbar DDD Recommendation of L MBB L5-S1 #1. May need a series of injections, up until RFA, for optimal pain relief. Risks, benefits of procedure discussed and patient verbalized understanding. Admits to anti- coagulant use or medical history of diabetes. Protocol for discontinuation/ continuation of medications martha procedure discussed. Minimal anesthesia provided, if clinically indicated, consisting of Versed and Fentanyl. All questions answered. I have spent greater than 30 minutes on patient care today. Dr Atkinson was available by phone for the evaluation of this patient. The time was used to review the medical records including relevant urine studies and Prescription history (MAPs), review of the available imaging, evaluation and examination of the patient, coordination of care with the medical staff and if applicable referring physicians, as well as creation of the medical record - Pain Location Left Lower Back Non-Pharmacological Interventions: Chiropractic Treatment, Exercise, Heat, Ice, Massage, Physical Therapy, Position/Reposition, Relaxation Technique Pharmacological Interventions: Epidural, PRN Medication, Topical Medication PQRS Narrative: Smoking Status Never smoker Home Medications: Ambulatory Orders Ibuprofen [Motrin Ib] 200 mg PO Q8H PRN 04/20/23 Multivit with Calcium,Iron,Min [Women's Multivitamin] 1 tab PO QAM 04/20/23 Controlled Substance Measures - Controlled Substance Measures Is patient prescribed a controlled substance at discharge?: No
== END ==
LOC: PNWHC3 08:04
PROVIDERS: ATTEND Specialist
DX: M51.36 Other intervertebral disc degeneration, lumbar region (principal); M46.96 Unspecified inflammatory spondylopathy, lumbar region; Z91.012 Allergy to eggs; Z91.018 Allergy to other foods; Z91.010 Allergy to peanuts; Z88.1 Allergy status to other antibiotic agents; Z88.6 Allergy status to analgesic agent; Z88.2 Allergy status to sulfonamides; Z88.8 Allergy status to other drugs, medicaments and biological substances; Z88.0 Allergy status to penicillin
CPT/HCPCS: 99211

== ENCOUNTER → 2024-08-26 | Outpatient (CLI) | payer BC ==
[2024-08-27 07:33] LABS: HCT 40.7 % (37.2-46.3); HGB 13.2 g/dL (12.0-15.0); MCH 29.7 pg (27.0-32.0); MCHC 32.4 g/dL (32.0-37.0); MCV 91.5 FL (80.0-97.0); Mean Platelet Volume 11.1 FL (9.5-12.2); NRBC Per 100 WBC 0 X 10*3/uL (0.00-0.01); Platelet Count 402 X 10*3/uL (140-440); RBC 4.45 X 10*6/uL (4.10-5.20); RDW 12.2 % (11.5-14.5); WBC 8.29 X 10*3/uL (4.50-10.00)
[2024-08-27 07:37] LABS: ALT 19 U/L (8-44); AST 18 U/L (13-35); Albumin 4.5 g/dL (3.8-4.9); Albumin/Globulin Ratio 1.67 Ratio (1.60-3.17); Alkaline Phosphatase 79 U/L (41-126); BUN/Creat Ratio 28.17 Ratio (12.00-20.00); Blood Urea Nitrogen 16.9 mg/dL (9.0-27.0); Calcium 9.2 mg/dL (8.7-10.3); Carbon Dioxide 23.9 mmol/L (21.6-31.8); Chloride 104 mmol/L (96-109); Globulin 2.7 g/dL (1.6-3.3); Glucose 88 mg/dL (70-110); LDL Cholesterol,Calculated 102.6 mg/dL (0.0-131.0); Magnesium 1.9 mg/dL (1.5-2.4); Potassium 3.9 mmol/L (3.5-5.5); Sodium 138 mmol/L (135-145); T4, Free (Free Thyroxine) 1.28 ng/dL (0.80-1.80); Total Bilirubin 0.6 mg/dL (0.3-1.2); Total Protein 7.2 g/dL (6.2-8.2)
== END | disposition home or self-care (01) ==
LOC: LABWHC1 10:40
PROVIDERS: ATTEND Family Medicine
DX: Z00.00 Encounter for general adult medical examination without abnormal findings (principal); E04.9 Nontoxic goiter, unspecified; R25.2 Cramp and spasm; R53.83 Other fatigue
CPT/HCPCS: 36415; 80053; 80061; 82306; 83735; 84439; 84443; 84481; 85027

== ENCOUNTER → 2024-09-27 | Outpatient (CLI) | payer BC ==
--- NOTE | 2024-09-27 21:47 | MR ---
EXAMINATION TYPE: MR tspine/lspine wo con DATE OF EXAM: 09/27/2024 9:25 PM COMPARISON: 10/01/2022 05/05/2023. CLINICAL INDICATION: Female, 34 years old with history of M54.50, M54.6; PHH, history syrinx of spina l cord, Mid back pain, severe low back pain, tingling, swelling and numbness down left leg to foot fo r 9-10 years. TECHNIQUE: Multi planar, multi sequence imaging was performed utilizing: T1-weighted, T2-weighted, a nd turbo inversion recovery imaging of the thoracic and lumbar spine. IV Contrast: mL (None, if empty) FINDINGS: Heterogenous thyroid gland bilaterally. THORACIC: Similar kyphotic curvature of the thoracic spine with the spinal cord position anteriorly a long the posterior aspect of the vertebral bodies. There is a syrinx again redemonstrated which is un changed and essentially extends from the superior [id number] to T9 where it measures up to 2 mm at the level of T6. This is similar prior. Redemonstration of scattered disc desiccation and disc bulging throughout the spine. No significant s kelsea canal neural foraminal stenosis. Scattered degeneration changes throughout the spine. There is high-grade T1/high T2 signal T12 vertebral body probable hemangioma. Posterior osteophyte at the level of the disc which closely approximates/minimally impresses on the s kelsea cord anteriorly at T4-T5, T5-T6, T8-T9 and T9-T10. Cord signal is maintained. LUMBAR: T12-L1: No evidence of significant spinal canal stenosis or neural foraminal stenosis. L1-L2: No evidence of significant spinal canal stenosis or neural foraminal stenosis. L2-L3: No evidence of significant spinal canal stenosis or neural foraminal stenosis. L3-L4: No evidence of significant spinal canal stenosis or neural foraminal stenosis. L4-L5: No evidence of significant spinal canal stenosis or neural foraminal stenosis. L5-S1: The disc has a rounded posterior morphology without significant spinal canal stenosis. Facet j oint arthropathy with mild bilateral neural foraminal stenosis. Other findings: None. IMPRESSION: 1. No evidence of significant spinal canal or neural foraminal stenosis. 2. Redemonstration of similar Central canal syrinx spinal cord measuring 2 mm at the level of T6 syr inx may disappear around the T9 vertebral body level. 3. Posterior osteophyte at the level of the disc which closely approximates/minimally impresses on t he spinal cord anteriorly at T4-T5, T5-T6, T8-T9 and T9-T10. No abnormal cord signal. [facility], , 09/27/2024 9:45 PM
== END | disposition home or self-care (01) ==
LOC: RADMRIMAIN 20:45
PROVIDERS: ATTEND Physical Medicine & Rehabilitation
DX: G95.0 Syringomyelia and syringobulbia (principal); M25.78 Osteophyte, vertebrae
CPT/HCPCS: 72146; 72148